=== PATIENT | female | born 1990 | race Caucasian/White ===

== ENCOUNTER → 2023-12-19 10:02 | Outpatient (REF) | payer BC, SELFPAY ==
[2023-12-19 11:15] LABS: % Basophils 0.9 % (0-2); % Eosinophils 1.6 % (0-6); % Immature Granulocytes 0.2 % (0-0.5); % Lymphocytes 39.1 % (20.5-51.1); % Monocytes 7.1 % (1.7-9.3); % Neutrophils 51.1 % (42.2-75.2); Absolute Eosinophils 0.1 10^3/uL (0-0.7); Absolute Lymphocytes 1.8 10^3/uL (1.2-3.4); Absolute Monocytes 0.3 10^3/uL (0.1-0.6); Absolute Neutrophils 2.3 10^3/uL (1.4-6.5); Hematocrit 37.6 % (37.0-47.0); Hemoglobin 13.2 g/dL (12.0-16.0); Mean Corp Hgb Conc. 35.1 g/dL (33.0-37.0); Mean Corpuscular Hgb 29.2 pg (27.0-31.0); Mean Corpuscular Volume 83.2 fL (81.0-99.0); Mean Platelet Volume 9.8 fL (7.4-10.4); Nucleated Red Blood Cells % 0 %; Platelet Count 264 10^3/uL (130-400); Red Blood Cell Count 4.52 10^6/uL (4.20-5.40); White Blood Cell Count 4.5 10^3/uL (4.8-10.8)
[2023-12-19 11:37] LABS: Glycohemoglobin (HgbA1c) 5.5 % (4.0-5.6)
[2023-12-19 12:17] LABS: ALT (SGPT) 13 U/L (0-35); AST (SGOT) 18 U/L (14-36); Albumin 4.7 g/dl (3.5-5.0); Alkaline Phosphatase 40 U/L (38-126); Blood Urea Nitrogen 7 mg/dl (7-17); Chloride 99 mmol/L (98-107); Glucose 84 mg/dl (70-99); HDL Cholesterol 59 mg/dl; LDL Cholesterol, Calculated 77 mg/dl; Sodium 134 mmol/L (135-145); Total Bilirubin 0.8 mg/dl (0.2-1.3); Total Cholesterol 159 mg/dl (50-199); Total Protein 7.2 g/dl (6.3-8.2); Triglyceride 115 mg/dl (10-149); Very Low Density Lipoprotein 23 mg/dl (0-30); eGFR > 60.00
[2023-12-19 12:24] LABS: Carbon Dioxide 22 mmol/L (22-30)
[2023-12-19 12:40] LABS: TSH Reflex To Free T4 0.54 uIU/ml (0.47-4.68)
[2023-12-19 13:07] LABS: Rubella Positive
[2023-12-19 14:53] LABS: Syphilis/T. pallidum Ab Reflex Negative (Negative)
== END ==
LOC: REG 10:02
PROVIDERS: ATTENDING PHYSICIAN Nurse Practitioner Family; FAMILY PHYSICIAN Family Medicine
DX: Z34.91 Encounter for supervision of normal pregnancy, unspecified, first trimester (principal); R55 Syncope and collapse
CPT/HCPCS: 36415; 80053; 80061; 83036; 84443; 84702; 85025; 86762; 86780; 86850; 86900; 86901

== ENCOUNTER → 2024-01-09 11:15 | Outpatient (REF) | payer BC, SELFPAY ==
[2024-01-09 14:01] LABS: Hepatitis B Surface Antigen Negative (Negative)
[2024-01-09 14:07] LABS: Glycohemoglobin (HgbA1c) 5.3 % (4.0-5.6)
[2024-01-09 14:11] LABS: HIV Combo Negative (Negative)
[2024-01-09 14:18] LABS: Hepatitis C Antibody Negative (Negative)
== END ==
LOC: REG 11:15
PROVIDERS: ATTENDING PHYSICIAN Obstetrics & Gynecology; FAMILY PHYSICIAN Family Medicine
DX: Z34.90 Encounter for supervision of normal pregnancy, unspecified, unspecified trimester (principal); Z34.82 Encounter for supervision of other normal pregnancy, second trimester
CPT/HCPCS: 36415; 83036; 86803; 87086; 87340; 87389

== ENCOUNTER → 2024-02-13 14:02 | Outpatient (REF) | payer BC, SELFPAY ==
[2024-02-15 16:08] LABS: AFP Multiple of Median (MoM) Not Done; Dating Ultrasound; Family Neural Tube Defect Hx No; Insulin Req Maternal Diabetes No; Maternal Age at Delivery 33.6 yr; Maternal Race Nonblack; Maternal Weight 152.0 lbs.; Number of Fetuses Singleton; Patient's AFP Concentration 29 ng/mL; Smoking No
== END ==
LOC: REG 14:02
PROVIDERS: ATTENDING PHYSICIAN Obstetrics & Gynecology; FAMILY PHYSICIAN Family Medicine
DX: Z34.82 Encounter for supervision of other normal pregnancy, second trimester (principal)
CPT/HCPCS: 36415; 82105

== ENCOUNTER → 2024-04-09 09:23 | Outpatient (REF) | payer BC, SELFPAY ==
[2024-04-09 10:53] LABS: % Basophils 0.6 % (0-2); % Eosinophils 1.6 % (0-6); % Immature Granulocytes 0.8 % (0-0.5); % Lymphocytes 19.6 % (20.5-51.1); % Monocytes 7.1 % (1.7-9.3); % Neutrophils 70.3 % (42.2-75.2); Absolute Eosinophils 0.1 10^3/uL (0-0.7); Absolute Immature Granulocytes 0.1 10^3/uL (0-0.05); Absolute Lymphocytes 1.2 10^3/uL (1.2-3.4); Absolute Monocytes 0.4 10^3/uL (0.1-0.6); Absolute Neutrophils 4.4 10^3/uL (1.4-6.5); Hematocrit 30.4 % (37.0-47.0); Hemoglobin 10.9 g/dL (12.0-16.0); Mean Corp Hgb Conc. 35.9 g/dL (33.0-37.0); Mean Corpuscular Volume 83.7 fL (81.0-99.0); Mean Platelet Volume 10.1 fL (7.4-10.4); Nucleated Red Blood Cells % 0 %; Platelet Count 208 10^3/uL (130-400); Red Blood Cell Count 3.63 10^6/uL (4.20-5.40); Red Cell Dist. Width 13.2 % (11.5-14.5); White Blood Cell Count 6.2 10^3/uL (4.8-10.8)
[2024-04-09 11:06] LABS: 1 Hour after 50gm 146 mg/dl
== END ==
LOC: REG 09:23
PROVIDERS: ATTENDING PHYSICIAN Obstetrics & Gynecology; FAMILY PHYSICIAN Family Medicine
DX: Z34.90 Encounter for supervision of normal pregnancy, unspecified, unspecified trimester (principal)
CPT/HCPCS: 36415; 82950; 85025; 86780

== ENCOUNTER → 2024-04-25 10:15 | Outpatient (REF) | payer BC, SELFPAY ==
[2024-04-25 10:44] LABS: Glucose for Tolerance Test 92 mg/dl
[2024-04-25 12:28] LABS: Glucose for Tolerance Test 152 mg/dl
[2024-04-25 13:38] LABS: Glucose for Tolerance Test 160 mg/dl
[2024-04-25 14:36] LABS: Glucose for Tolerance Test 121 mg/dl
== END ==
LOC: REG 10:15
PROVIDERS: ATTENDING PHYSICIAN Obstetrics & Gynecology; FAMILY PHYSICIAN Family Medicine
DX: Z34.90 Encounter for supervision of normal pregnancy, unspecified, unspecified trimester (principal)
CPT/HCPCS: 36415; 82951

== ENCOUNTER 2024-06-14 13:23 | Observation (INO) | payer BC, SELFPAY ==
[2024-06-14 13:30] VITALS: BP 132/66; BMI 25.4
[2024-06-14 14:09] LABS: Urine Albumin Trace (Neg - Trace); Urine Bilirubin Negative (Negative); Urine Character Slightly Cloudy (Clear); Urine Color Yellow; Urine Glucose Negative (Negative); Urine Ketone 2+ (Negative); Urine Leukocyte Trace (Negative); Urine Nitrite Negative (Negative); Urine Occult Blood 3+ (Negative); Urine Specific Gravity 1.025 (<1.030); Urine Urobilinogen Negative (Neg - 1+)
[2024-06-14 14:34] LABS: Urine Amorphous Seen; Urine Squamous Cell >30 /LPF (Few)
[2024-06-14 14:37] LABS: Urine Bacteria Many (Negative)
== END 2024-06-14 17:03 | disposition home or self-care (01) ==
LOC: LDRP 13:23
PROVIDERS: ADMITTING PHYSICIAN Obstetrics & Gynecology
DX: O46.93 Antepartum hemorrhage, unspecified, third trimester (principal); Z3A.34 34 weeks gestation of pregnancy; Z88.7 Allergy status to serum and vaccine; Z82.49 Family history of ischemic heart disease and other diseases of the circulatory system; O98.313 Other infections with a predominantly sexual mode of transmission complicating pregnancy, third trimester; A60.00 Herpesviral infection of urogenital system, unspecified
CPT/HCPCS: 76815; 81003; 81015; 85460; 87077; 87086; 87147; 87186; G0378

== ENCOUNTER → 2024-06-28 15:39 | Outpatient (REF) | payer BC, SELFPAY | LOC: CLAB 15:39 | PROVIDERS: ATTENDING PHYSICIAN Obstetrics & Gynecology | DX: Z36.85 Encounter for antenatal screening for Streptococcus B (principal) | CPT/HCPCS: 87070 ==

== ENCOUNTER → 2024-07-11 12:00 | Outpatient (REF) | payer BC, SELFPAY | LOC: CPAP 12:00 | PROVIDERS: ATTENDING PHYSICIAN Obstetrics & Gynecology | DX: L08.9 Local infection of the skin and subcutaneous tissue, unspecified (principal) | CPT/HCPCS: 87070; 87075; 87205 ==

== ENCOUNTER 2024-07-12 17:33 | Observation (INO) | payer BC, SELFPAY ==
[2024-07-12 17:38] VITALS: BP 133/72
== END 2024-07-12 19:40 | disposition home or self-care (01) ==
LOC: LDRP 17:33
PROVIDERS: ADMITTING PHYSICIAN Obstetrics & Gynecology
DX: O47.1 False labor at or after 37 completed weeks of gestation (principal); Z3A.38 38 weeks gestation of pregnancy
CPT/HCPCS: 59899; G0378

== ENCOUNTER 2024-07-13 07:47 | Inpatient (IN) | payer BC, SELFPAY ==
[2024-07-13 08:20] VITALS: BP 134/86; BMI 25.5
[2024-07-13] MEDS: SUBLIMAZE 100 MCG EPIDURAL (08:44)
[2024-07-13] MEDS: FENTANYL/BUPIVACAINE 100 EPIDURAL (08:44)
[2024-07-13 09:04] LABS: % Basophils 0.5 % (0-2); % Eosinophils 0.5 % (0-6); % Immature Granulocytes 0.8 % (0-0.5); % Neutrophils 72.2 % (42.2-75.2); Absolute Immature Granulocytes 0.1 10^3/uL (0-0.05); Absolute Monocytes 0.6 10^3/uL (0.1-0.6); Absolute Neutrophils 4.4 10^3/uL (1.4-6.5); Hematocrit 28.3 % (37.0-47.0); Hemoglobin 9.1 g/dL (12.0-16.0); Mean Corp Hgb Conc. 32.2 g/dL (33.0-37.0); Mean Corpuscular Hgb 24.9 pg (27.0-31.0); Mean Corpuscular Volume 77.3 fL (81.0-99.0); Mean Platelet Volume 11.2 fL (7.4-10.4); Nucleated Red Blood Cells % 0 %; Platelet Count 182 10^3/uL (130-400); Red Blood Cell Count 3.66 10^6/uL (4.20-5.40); Red Cell Dist. Width 13.1 % (11.5-14.5); White Blood Cell Count 6.1 10^3/uL (4.8-10.8)
[2024-07-13] MEDS: PITOCIN 30 UNITS/NSS 500 ML IV (11:00)
[2024-07-13] MEDS: MOTRIN 600 MG PO (19:29)
[2024-07-14] MEDS: MOTRIN 600 MG PO ×3 (04:50→21:12)
[2024-07-14 05:00] LABS: Hematocrit 24.7 % (37.0-47.0)
[2024-07-14] MEDS: FEOSOL 325 MG PO (08:07)
[2024-07-14] MEDS: TYLENOL 650 MG PO (08:07)
[2024-07-14] MEDS: SENOKOT-S 1 TABLET PO (08:11)
[2024-07-15] MEDS: MOTRIN 600 MG PO (04:38)
[2024-07-15] MEDS: FEOSOL 325 MG PO (08:00)
[2024-07-15] MEDS: SENOKOT-S 1 TABLET PO (08:01)
== END 2024-07-15 13:00 | disposition home or self-care (01) | DRG 806 ==
LOC: LDRP 07:47
PROVIDERS: Obstetrics & Gynecology; ADMITTING PHYSICIAN Obstetrics & Gynecology; FAMILY PHYSICIAN Family Medicine
PROC: 10907ZC Drainage of Amniotic Fluid, Therapeutic from Products of Conception, Via Natural or Artificial Opening (ICD-10-PCS; 2024-07-13)
PROC: 10E0XZZ Delivery of Products of Conception, External Approach (ICD-10-PCS; 2024-07-13)
PROC: 4A1HXCZ Monitoring of Products of Conception, Cardiac Rate, External Approach (ICD-10-PCS; 2024-07-13)
DX: O69.81X0 Labor and delivery complicated by cord around neck, without compression, not applicable or unspecified (principal); O98.32 Other infections with a predominantly sexual mode of transmission complicating childbirth; Z37.0 Single live birth; O99.354 Diseases of the nervous system complicating childbirth; G43.909 Migraine, unspecified, not intractable, without status migrainosus; A60.00 Herpesviral infection of urogenital system, unspecified; O99.344 Other mental disorders complicating childbirth; F41.9 Anxiety disorder, unspecified; Z3A.38 38 weeks gestation of pregnancy; Z86.19 Personal history of other infectious and parasitic diseases; Z88.7 Allergy status to serum and vaccine
CPT/HCPCS: 85014; 85018; 85025; 86780; 86850; 86900; 86901

== ENCOUNTER → 2024-07-31 08:44 | Outpatient (REF) | payer BC, SELFPAY | LOC: CPAP 08:44 | PROVIDERS: ATTENDING PHYSICIAN Obstetrics & Gynecology | DX: Z39.2 Encounter for routine postpartum follow-up (principal) | CPT/HCPCS: 87070; 87075; 87147; 87205 ==

== ENCOUNTER → 2024-08-21 09:34 | Outpatient (REF) | payer BC, SELFPAY | LOC: HWRAD 09:34 | PROVIDERS: ATTENDING PHYSICIAN Obstetrics & Gynecology; FAMILY PHYSICIAN Family Medicine | DX: L08.9 Local infection of the skin and subcutaneous tissue, unspecified (principal) | CPT/HCPCS: 76705 ==

== ENCOUNTER 2024-09-20 11:47 | Emergency (ER) | payer BC, SELFPAY ==
[2024-09-20 11:48] VITALS: BP 126/85
[2024-09-20 12:12] VITALS: BMI 22.6
[2024-09-20 12:23] LABS: % Basophils 1.2 % (0-2); % Eosinophils 5.3 % (0-6); % Immature Granulocytes 0.2 % (0-0.5); % Lymphocytes 35.9 % (20.5-51.1); % Monocytes 6.3 % (1.7-9.3); % Neutrophils 51.1 % (42.2-75.2); Absolute Basophils 0.1 10^3/uL (0-0.2); Absolute Eosinophils 0.3 10^3/uL (0-0.7); Absolute Lymphocytes 1.8 10^3/uL (1.2-3.4); Absolute Monocytes 0.3 10^3/uL (0.1-0.6); Absolute Neutrophils 2.5 10^3/uL (1.4-6.5); Hematocrit 39.3 % (37.0-47.0); Hemoglobin 12.7 g/dL (12.0-16.0); Mean Corp Hgb Conc. 32.3 g/dL (33.0-37.0); Mean Corpuscular Hgb 25.4 pg (27.0-31.0); Mean Corpuscular Volume 78.6 fL (81.0-99.0); Mean Platelet Volume 10.1 fL (7.4-10.4); Nucleated Red Blood Cells % 0 %; Platelet Count 258 10^3/uL (130-400); Red Cell Dist. Width 17.9 % (11.5-14.5); White Blood Cell Count 4.9 10^3/uL (4.8-10.8)
[2024-09-20 12:24] LABS: HCG, Serum Qualitative Screen Negative
[2024-09-20 12:27] LABS: ALT (SGPT) 29 U/L (0-35); AST (SGOT) 26 U/L (14-36); Albumin 4.8 g/dl (3.5-5.0); Alkaline Phosphatase 55 U/L (38-126); Blood Urea Nitrogen 12 mg/dl (7-17); Calcium 9.9 mg/dl (8.4-10.2); Carbon Dioxide 27 mmol/L (22-30); Chloride 103 mmol/L (98-107); Estimated Creatinine Clearance 105 ml/min; Glucose 110 mg/dl (70-99); Sodium 139 mmol/L (135-145); Total Bilirubin 0.5 mg/dl (0.2-1.3); Total Protein 7.4 g/dl (6.3-8.2); eGFR > 60.00
[2024-09-20 13:00] VITALS: BP 115/73
--- NOTE | 2024-09-20 13:06 | ED.GENMED ---
History of Present Illness
General
Chief Complaint: Vaginal Bleeding
Time Seen by Provider: 09/20/24 12:54
History of Present Illness
History of Present Illness:
Patient is a 33-year-old presenting to the emergency department with vaginal bleeding. Patient states that she is 9 weeks . 6 weeks her bleeding stopped. 2 days ago her bleeding picked back up. She is soaking through a
tampon and pad every 2 hours. There is no clot. She does state that it is bright red. She denies any lightheadedness dizziness. Occasional shortness of breath but nothing significant. She is not currently on any medications or vitamins. She
denies any bleeding disorders. She did not have any significant hemorrhage. She has not yet started her.. She is breast-feeding. She denies any recent trauma or intercourse. Prior to her that she does state that her periods
were light and regular. She talked to her TECHNICAL ANALYST here at [facility] who advised her to come to the emergency department for further evaluation.
Past History
Past History
ED Past Medical History: Other (Seasonal allergies)
Social History
Tobacco: Non-smoker
Personal: Single
Employment: Employed
Phy Exam
Physical Exam
Physical Exam:
GENERAL: in no acute distress
HEENT: normocephalic, extraocular movements intact, moist oral mucosa
NECK: normal inspection
RESPIRATORY: no respiratory distress, clear to auscultation bilaterally
CARDIOVASCULAR: regular rate and rhythm
ABDOMEN/: soft, non-distended, non-tender to palpation, no rebound or guarding
Pelvic: Chaperoned by RN external genitalia without erythema, exudate or discharge. Vaginal vault is without discharge. Cervix is of normal color without lesion. The os is closed. There is mild bleeding noted from the os, no obvious lacerations
EXTREMITIES: non-tender, no edema/swelling
NEUROLOGIC: awake and alert, moves all extremities
SKIN: warm
Course
Orders/Labs/Results
Orders:
Orders
09/20/24 11:51
Test Result ONCE
09/20/24 11:53
Type+Screen Urgent
CMP [Comprehensive Metabolic Panel] Urgent
Complete Blood Count/With Diff Urgent
HCG, Serum Qualitative Screen Urgent
09/20/24 13:06
US Pelvis W Transvag Combined Urgent
Comment:
Reason For Exam: vaginal bleeding
Abnormal Lab Results
09/20/24
11:53
MCV 78.6 L fL
(81.0-99.0)
MCH 25.4 L pg
(27.0-31.0)
MCHC 32.3 L g/dL
(33.0-37.0)
RDW 17.9 H %
(11.5-14.5)
Glucose 110 H mg/dl
(70-99)
09/20/24 11:53
09/20/24 11:53
Vital Signs
Initial and Last Documented VS:
Initial Vital Signs
Temp Pulse Resp BP Pulse Ox
98.6 F 76 16 126/85 100
09/20/24 11:48 09/20/24 11:48 09/20/24 11:48 09/20/24 11:48 09/20/24 11:48
Last Documented Vital Signs
Temp Pulse Resp BP Pulse Ox
98.6 F 76 16 115/73 97
09/20/24 11:48 09/20/24 11:48 09/20/24 11:48 09/20/24 13:00 09/20/24 13:01
MDM/Problems Addressed
Differential Diagnosis Includes:
Patient is a 33-year-old G2, P2 who is currently 9 weeks presenting to the emergency department 2 days of vaginal bleeding. Vitals are unremarkable and exam does show slow oozing from the cervix. No obvious clots. Differential is broad
but consists of menstruation versus hormone changes. Could be polyps or fibroids. Blood work obtained prior to my evaluation shows a normal hemoglobin. She is not . Will proceed with pelvic ultrasound.
*Critical Care Note
Total Time (30-74mins, 75-104mins- exclusive of procedures): Not Applicable
Update Note
Update Note:
Pelvic ultrasound with no acute abnormality. Discussed with Dr. magallon from OB. She recommended initiating txa at 1300mg every 8 hours for 5 days max. Patient advised to follow-up with OB. Strict return precautions given.
ED Attending Note
-
Portions of this chart may have been created with voice recognition software.� Occasional wrong word or��sound alike� substitutions may have occurred due to the inherent limitations of voice recognition software.
Discharge Plan
Departure
Patient Disposition: Home (Routine Discharge)
Date of Disposition: 09/20/24
Time of Disposition: 15:51
Patient with high blood pressure during this ER visit?: No
Discharge Problem:
Vaginal bleeding
Instructions: Heavy Periods (DC)
Prescriptions:
New
tranexamic acid 650 mg tablet
1,300 mg PO Q8H 5 Days Qty: 30 0RF
No Action
ibuprofen 600 mg Tablet
600 mg PO Q6HPRN PRN (Reason: Pain) Qty: 90 0RF
Referrals:
Jose Alfredo Byrd, DO [Family Provider] -
Activity Restrictions/Additional Instructions:
You were seen in the Emergency Department today for vaginal bleeding. While you were here we performed blood work, which was reassuring this is most likely your period. Please take the medication as discussed. If you stop bleeding you may hold the
medication. Please call your OB team to schedule a follow-up visit. If you continue to bleed become lightheaded dizzy or pass out please immediately come to the emergency department
We would like for you to follow up with your primary care physician for further evaluation. If you experience fever, worsening of your symptoms, or develop any other new or concerning symptoms, please return to the Emergency Department immediately.
Please see the attached sheet for additional information.
Interventions
Interventions:
*Risk Screen - Suicide Last Done: 09/20/24 11:48
*General Assessment Last Done: 09/20/24 11:48
ED- Fall Risk Assessment Last Done: 09/20/24 12:13
*ED COVID-19 Vaccine History Last Done: 09/20/24 11:48
ED-Female Genitourinary Assessment Last Done: 09/20/24 12:12
Discharge Date and Time
Print Language: KOSOVAN
== END 2024-09-20 16:03 | disposition home or self-care (01) ==
LOC: EMR 11:47
PROVIDERS: Student in an Organized Health Care Education/Training Program; EMERGENCY PHYSICIAN Student in an Organized Health Care Education/Training Program; FAMILY PHYSICIAN Family Medicine
DX: N93.9 Abnormal uterine and vaginal bleeding, unspecified (principal)
CPT/HCPCS: 99284; 76830; 76856; 80053; 84703; 85025; 86850; 86900; 86901